=== PATIENT | female | born 1995 | race Caucasian/White ===

== ENCOUNTER 2017-02-11 19:43 | Outpatient (CLI) | payer OTHER ==
[2017-02-11 20:08] VITALS: BP 120/71; PULSE 105; TEMP 98.1
[2017-02-11] MEDS ORDERED: TYLENOL 500MG500 MG PO (20:17)
[2017-02-11] MEDS ORDERED: ASPIRIN 81M81 MG/TA2 PO (20:18)
[2017-02-11 20:30] VITALS: BP 110/69; PULSE 101
[2017-02-11 21:30] VITALS: BP 103/66; PULSE 95
[2017-02-11 22:30] VITALS: BP 105/59; PULSE 85
[2017-02-11 23:30] VITALS: BP 101/58; PULSE 90
[2017-02-11 23:56] VITALS: BP 102/59; PULSE 104; TEMP 97.9
== END 2017-02-12 00:10 | disposition home or self-care (01) ==
LOC: LDRO 19:43
DX: O71.89 Other specified obstetric trauma (principal); V89.2XXA Person injured in unspecified motor-vehicle accident, traffic, initial encounter; Z3A.26 26 weeks gestation of pregnancy

== ENCOUNTER → 2017-08-24 | Outpatient (CLI) | payer OTHER, BC ==
[~2017-08-24] MED LIST: ASPIRIN 81M81 MG/TA2 PO; TYLENOL 500MG500 MG PO
== END ==
LOC: COL.RAD 12:00
DX: R10.11 Right upper quadrant pain (principal)